=== PATIENT | female | born 1950 | race Caucasian/White ===

== ENCOUNTER 2022-05-18 09:45 | Outpatient (RCR) | payer MEDICARE, OTHER, SELFPAY ==
--- NOTE | 2022-04-27 15:46 | PT.OPE ---
PT [place] Outpatient Eval PT [facility] Outpatient Eval Start: 04/27/22 07:56 Freq: Status: Active Protocol: Document 04/27/22 15:42 CJT (Rec: 04/27/22 15:46 CJT [email or web address]) E-signed By Garcia Salazar PT Physical Therapy Outpatient Evaluation Insurance Information Recert Due Date 06/08/22 Insurance Name Medicare B,Other; See Comments Insurance Information/Comments for Life Medical Diagnosis R42 - Vertigo Treating Diagnosis R42 - Vertigo Referring MD Wong, Mac GARCIA Subjective Subjective Pt reports return of vertigo starting early March. Dizziness occurs with rolling over in bed to her L. Pt describes her dizziness as room spinning. Has been having some trouble with ear pain and lack of hearing. Dr. Wong thinks that Idania is dealing with some TMJ pain as well. Pt fell 3 weeks ago and this hurt her back. Doesn't think she hurt anything. Pt is having steroid injection into L hip due to pain. Has been walking a lot more lately and thinks this is taking a toll. Date of Last Physician Visit 04/19/22 Current Work Status Retired Preferred Name Idania Precautions Therapy Limitations/Systems Review Not Limited Objective Range of Motion Cervical ROM Extension - 50 Flexion - 55 R/L SB - 18/26 R/L Rotation - 53/56 Other/Pertinent Objective [place]-Hallpike positive on L for torsional nystagmus and reports of dizziness lasting approx 10 seconds R Head Thrust positive for 4 beats of nystagmus All other oculomotor testing is negative for nystagmus and reports of dizziness Assessment Assessment/Impression Pt is a 72 year old female who presents to OP PT clinic with complaints of room-spinning dizziness that began in March . Pt has been treated successfully at our clinic in the past for BPPV, most recently in December/January of 2022. Pt reports she had been doing well with her vertigo until early March when she rolled over in bed and experienced room-spinning dizziness lasting about 15 seconds. Pts L ear has been a source of problems for her in the past as each time she has had BPPV it has been on the L side. She also has had some issues with her L ear and L TMJ recently. Testing reveals deficits in cervical ROM. Positional testing is positive for L posterior canalithiasis. R Rachana -Hallpike was tested and absent of dizziness symptoms and nystagmus. Upon performing the L Rachana/Hallpike the patient reported room-spinning dizziness in conjunction with torsional nystagmus lasting approx 10 seconds. Pt was then taken through a L Kwadwo maneuver x 2 with reduced dizziness and nystagmus noted during the second maneuver. Skilled PT services are medically necessary to address deficits and return patient to highest level of function. Recommend physical therapy sessions 1/week for 4-6 weeks. Pt agrees with this plan. Primary Functional Limitations Rolling over in bed, leaning forward, looking up Plan of Care Rehabilitation Potential Good Physical Therapy Goals STG - To be completed in 2-3 weeks: 1. Pt will report reduction in dizziness frequency and intensity so that they may return to normal bed mobility with minimal bouts of dizziness. LTG - To be completed in 4 weeks: 1. Pt will report ability to roll over in bed to either side without onset of dizziness so that they may roll over in bed without waking. 2. Pt will score 120/120 on mCTSIB as indication of improved vestibular component of balance to reduce risk of falls. 3. Pt will report absence of dizziness with all positional testing so that they may perform all activities with similar head/neck positions including rolling over in bed, washing hair in shower without onset of dizziness. Treatment Plan/Direct Interventions Ice/Cold/Vasopneumatic,Manual Therapy,Neuromuscular Re-ed, Self-Care/Home Management, Therapeutic Exercises Frequency/Duration 1/week for 4-6 weeks Patient Will Be Discharged From Therapy Completion of LTG(s),Skills Plateau,Independent w/HEP, Independently Progressing Evaluation Billing Untimed Code Treatment Minutes 48 PT Eval No Charge No Complexity Low Certification Information Initial Certification Date 04/27/22 Ending Certification Date 06/08/22 Provider Signature Shows Agreement With POC & Medical Necessity Physician Comment/Change Comment or Changes Physician NPI Number #
== END 2022-07-13 12:42 | disposition home or self-care (01) ==
PROVIDERS: Visit Provider Otolaryngology
DX: R42 Dizziness and giddiness (principal); Z51.89 Encounter for other specified aftercare
CPT/HCPCS: 97161

== ENCOUNTER 2024-02-26 10:30 | Outpatient (RCR) | payer MEDICARE, OTHER, SELFPAY ==
--- NOTE | 2024-02-20 14:14 | PT.OPE ---
PT [place] Outpatient Eval PT [facility] Outpatient Eval Start: 02/19/24 10:43 Freq: Status: Active Protocol: Document 02/20/24 14:11 CJT (Rec: 02/20/24 14:14 CJT [id number]) E-signed By Garcia Salazar, PT Physical Therapy Outpatient Evaluation Insurance Information Recert Due Date 05/20/24 Insurance Name Medicare B Medical Diagnosis R42 - dizziness and giddiness Treating Diagnosis H81/12 - L ear BPPV Referring Mac Robles MD Subjective Subjective Pt reports symptoms including lightheadedness as well as dizziness symptoms with bending forward. Symptoms started approx 2 weeks ago. Was sick for a few weeks at end of December. Also reports seasonal allergies. Rolling to the L when she is laying in bed makes her symptoms worse. Date of Last Physician Visit 02/13/24 Current Work Status Retired Preferred Name Idania Precautions Therapy Limitations/Systems Review Not Limited Objective Other/Pertinent Objective Cervical ROM, pre-, post- treatment Extension - 44, 44 Flexion - 35, 41 R/L Sidebend - 16/12, 18/12 R/L Rotation - 59/32, 59/47 Oculomotor Testing Gaze Stabilization: negative Smooth Pursuits: negative Saccades: negative Convergence: negative Head Shake: minimal dizziness noted by pt, no nystagmus noted Head Thrust: negative Positional Testing -R Rachana-Hallpike: negative -L [place]-Hallpike: positive for nystagmus and report of dizziness lasting approx 10 seconds -R Roll: negative -L Roll: negative Modified Romberg -Eyes open, firm surface: no sway -Eyes closed, firm surface: normal sway -Eyes open, foam surface: normal sway -Eyes closed, foam surface: normal sway Assessment Assessment/Impression Idania is a very pleasant 74 year old female who presents to our clinic for evaluation of dizziness. Pt has been treated for L posterior canalithiasis in our clinic in years previous. Differential diagnosis is broad, including though was not limited to: peripheral processes (BPPV, vestibular neuritis, labyrinthitis, Meniere?s disease), [employer]PRESENT[employer]IVE process (CVA, TIA, vascular dissection), cardiac arrhythmia, ACS, hypertensive urgency, among others. Based on the above history and exam, her symptoms are most suspicious and consistent with a peripheral process, with highest suspicion for BPPV. Other etiologies for dizziness were considered, but felt to be less likely at this time. Each of their episodes of dizziness are distinctly triggered by changes in body position/head movement, and dizziness fatigues/resolves after a few seconds. The pt does have a positive Rachana- Hallpike maneuver towards the LEFT side. Upon viewing this, an Kwadwo maneuver was appropriately performed and pt noted Complete resolution in symptoms following. I have asked Idania to schedule a follow -up session in 7 days time, she agrees. At that time we will repeat positional testing adn treat as needed. I do feel that Idania's symptoms may have cervicogenic origins but will investigate this further when she returns. Recommend continued PT services to address deficits and return pt to highest level of function. Primary Functional Limitations Walking, rolling in bed, bending forward Plan of Care Rehabilitation Potential Good Physical Therapy Goals STG - To be completed in 2-3 weeks: 1. Pt will report reduction in dizziness frequency and intensity so that they may return to normal bed mobility with minimal bouts of dizziness. LTG - To be completed in 4 weeks: 1. Pt will report ability to roll over in bed to either side without onset of dizziness so that they may roll over in bed without waking. 2. Pt will report absence of dizziness with all positional testing so that they may perform all activities with similar head/neck positions including rolling over in bed, washing hair in shower without onset of dizziness. Treatment Plan/Direct Interventions Canalith Repositioning, Electrical Stimulation,Heat, Ice/Cold/Vasopneumatic,Joint Mobilization,Manual Therapy, Neuromuscular Re-ed,Self-Care/ Home Management,Therapeutic Exercises Frequency/Duration 1/week for 4 weeks Patient Will Be Discharged From Therapy Completion of LTG(s),Skills Plateau,Independent w/HEP, Independently Progressing Evaluation Billing Untimed Code Treatment Minutes 30 PT Eval No Charge No Complexity Low Certification Information Initial Certification Date 02/20/24 Ending Certification Date 05/20/24 Provider Signature Required Yes Provider Signature Shows Agreement With POC & Medical Necessity Physician NPI Number Write NPI# Here Physician Comment/Change : Physician Signature & Date Requested Please Sign/Date Here
== END 2024-05-13 08:51 | disposition home or self-care (01) ==
PROVIDERS: Visit Provider Otolaryngology
DX: H81.12 Benign paroxysmal vertigo, left ear (principal); Z51.89 Encounter for other specified aftercare
CPT/HCPCS: 97140; 97161

== ENCOUNTER 2024-12-24 13:00 | Outpatient (RCR) | payer MEDICARE, OTHER, SELFPAY ==
--- NOTE | 2024-11-21 15:34 | PT.OPE ---
PT [place] Outpatient Eval PT [facility] Outpatient Eval Start: 11/21/24 15:30 Freq: Status: Active Protocol: Document 11/21/24 15:31 ENMANUEL (Rec: 11/21/24 15:33 ENMANUEL [id number]) E-signed By Irving Henao DPT, MS Physical Therapy Outpatient Evaluation Insurance Information Recert Due Date 02/19/25 Insurance Name Medicare B,Other; See Comments Insurance Information/Comments Medical Diagnosis Dizziness and giddiness Treating Diagnosis L posterior canal BPPV, sensory disorganization, imbalance Subjective Subjective Pt presents to PT with c/o high levels of positional vertigo of insidious origin upon waking yesterday morning. High levels of room spinning dizziness with fwd bending and looking down since onset of sxs. Previous hx of several episodes of BPPV with current sxs feeling like the most severe she has experienced to date. Believes recent bronchitis during a trip to [place] led to dizziness. Denies changes in hearing or vision. PSH of CS fusion and R LISA. PMH includes seasonal allergies, DM-II, HTN, and CS and LS OA. AGGR factor: looking down, fwd bending, walking in the dark and uneven surfaces. ALLEV factors: slow movement, avoiding lying on L side or fully supine. She hopes to resolve dizziness sxs to improve papa to daily activities. Pain Comments Mod-high dizziness Current Work Status Retired Precautions Therapy Limitations/Systems Review Not Limited Objective Functional Test Performed & Score DHI: 82% Assessment Assessment/Impression Testing revealed signs and symptoms consistent with L posterior canal BPPV. Pt Following canalith repositioning maneuver x 2 she presented as resolved with re -testing with decreased dizziness and improved quality of gait. Notable improvement in sxs and balance following today?s session. Sensory disorganization found with balance testing with overreliance on her vision for balance. All other neurological testing normal. Emphasized importance of allergy management to help improve chances of successful tx and preventing recurrent vertigo episodes in the future . Recommended pt avoid sustained flex or ext head positions over the next 48 hours. She will benefit from continued skilled PT intervention to address current limitations. Primary Functional Limitations Looking down, fwd bending, walking in the dark and uneven surfaces Plan of Care Rehabilitation Potential Excellent Physical Therapy Goals Therapy goals to be completed in 10 weeks: 1.Patient will display resolution of L posterior canalithiasis BPPV symptoms for >5 consecutive days to improve safety with household cleaning activities. 2.Patient will display improved Romberg balance on foam surface with eyes closed >4 sec with minimal sway to decrease falls risk on compliant surfaces. 3.Patient will display improved 4-item DGI testing > 10/12 to decrease falls risk with dynamic gait tasks. 4. Pt will report >75% improvement in DHI to improve safety and tolerance to daily functional activities. Coordination/Communication With Referral Source Treatment Plan/Direct Interventions Canalith Repositioning,Joint Mobilization,Manual Therapy, Neuromuscular Re-ed, Therapeutic Exercises Frequency/Duration 1-2x per week for as needed for 6-10 visits, decreasing visit frequency, as able. Patient Will Be Discharged From Therapy Completion of LTG(s),Skills Plateau,Independent w/HEP, Independently Progressing Evaluation Billing Untimed Code Treatment Minutes 24 Complexity Moderate Certification Information Initial Certification Date 11/21/24 Ending Certification Date 02/19/25 Provider Signature Required Yes Provider Signature Shows Agreement With POC & Medical Necessity Physician NPI Number Write NPI# Here Physician Comment/Change : Physician Signature & Date Requested Please Sign/Date Here
== END 2025-04-15 14:43 | disposition home or self-care (01) ==
PROVIDERS: Visit Provider Otolaryngology
DX: H81.12 Benign paroxysmal vertigo, left ear (principal); Z51.89 Encounter for other specified aftercare
CPT/HCPCS: 97110; 97112; 97140; 97162